=== PATIENT | female | born 1930 | race Caucasian/White ===

== ENCOUNTER 2018-03-18 09:58 | Emergency (ER) | payer MEDICARE, OTHER ==
[2018-03-18] MEDS ORDERED: LORAZEPAM 0.5 MG TABLET PO ONE (10:53)
[2018-03-18] MEDS ORDERED: IPRATROPIUM/ALBUTEROL (0.5MG/3MG) NEB INH ONE (10:53)
[2018-03-18 11:07] LABS: BASO % 0.3 % (0-6); EOS % 1.6 % (0-6); GRAN % 73.3 % (47-80); HEMATOCRIT 40.6 % (35.0-47.0); HEMOGLOBIN 12.9 gm/dl (11.6-16.0); LYMPH % 17.5 % (16-45); MEAN CELL VOLUME 97.8 fl (81-97); MEAN CORPUSCULAR HEMOGLOBIN 31.1 pg (27-33); MEAN CORPUSCULAR HGB CONC 31.8 g/dl (32-36); MEAN PLATELET VOLUME 9.9 fl (7.4-10.4); MONO % 7.3 % (0-9); PLATELET COUNT 364 K/uL (130-400); RED BLOOD COUNT 4.15 M/uL (3.80-5.40); RED CELL DISTRIBUTION WIDTH 14.1 % (11.5-14.5)
[2018-03-18 11:29] LABS: BLOOD UREA NITROGEN 44 mg/dL (8-23); CREATININE 1.8 mg/dL (0.5-0.9); EST GLOMERULAR FILTRATION RATE 28 mL/min
[2018-03-18 11:30] LABS: TOTAL PROTEIN 7.8 g/dL (6.6-8.7)
[2018-03-18 11:32] LABS: GLUCOSE,RANDOM 197 mg/dL (74-109)
[2018-03-18 11:34] LABS: ALT/SGPT 24 U/L (<33)
[2018-03-18 11:35] LABS: ALB/GLOB RATIO 1.1 (1.1-1.8); ALKALINE PHOSPHATASE 83 U/L (35-104); AST/SGOT 15 U/L (10.0-35.0)
[2018-03-18] MEDS ORDERED: 0.9% SODIUM CHLORIDE 250ML BAG IV ONE (11:47)
--- NOTE | 2018-03-18 12:46 | Emergency Department Record ---
Anxiety - General Chief Complaint: Anxiety Stated Complaint: ANXIETY, CAN'T SLEEP Time Seen by Provider: 03/18/18 10:36 Source: Patient Mode of Arrival: Ambulatory Limitations: No limitations - History of Present Illness Initial Comments: pt c/o insomnia and anxiety. she states it has gone on for years. she is very weary and frustrated. Complaint: Other -: Unknown Place: Home Previous History of Same: Yes Severity: Mild Quality: Intermittant Associated symptoms: Shortness of breath - Related Data Home Medications: Home Medications Medication Instructions Recorded Confirmed Last Taken Aspirin [Aspir-Low] 81 mg PO DAILY 03/18/18 03/18/18 03/17/18 Atorvastatin Calcium [Lipitor] 10 mg PO QHS 03/18/18 03/18/18 03/17/18 Bumetanide 1 mg PO BID 03/18/18 03/18/18 03/17/18 Cholecalciferol (Vitamin D3) 1,000 unit PO DAILY 03/18/18 03/18/18 03/17/18 [Vitamin D3] Docusate Sodium [Stool Softener] 100 mg PO DAILY 03/18/18 03/18/18 03/17/18 Estrogens, Conjugated [Premarin] 42.5 gm VG ASDIR 03/18/18 03/18/18 03/17/18 Gabapentin [Neurontin] 100 mg PO QHS 03/18/18 03/18/18 03/17/18 Gabapentin [Neurontin] 300 mg PO QHS 03/18/18 03/18/18 Unknown Glipizide [Glucotrol Xl] 5 mg PO DAILY 03/18/18 03/18/18 03/17/18 Hydrocodone/APAP 5/325Mg [[facility] 1 each PO Q8H PRN 03/18/18 03/18/18 Unknown 5Mg/325Mg] Insulin Glargine,Hum.rec.anlog 32 unit SQ DAILY 03/18/18 03/18/18 03/18/18 [Lantus Solostar] Insulin Lispro [Humalog Kwikpen] 5 unit SQ TIDAC 03/18/18 03/18/18 03/18/18 Metoprolol Succinate [Toprol Xl] 50 mg PO DAILY 03/18/18 03/18/18 03/17/18 Multivitamin [Multi-Vitamin Daily] 1 each PO DAILY 03/18/18 03/18/18 03/17/18 Ropinirole HCl [Requip] 2 mg PO QHS 03/18/18 03/18/18 03/17/18 Previous Rx's Medication Instructions Recorded Lorazepam [Ativan] 0.5 mg PO QHS #10 tablet 03/18/18 Allergies/Adverse Reactions: Allergies Allergy/AdvReac Type Severity Reaction Status Date / Time levofloxacin [From Levaquin] Allergy RASH Verified 03/18/18 10:12 Travel Screening - Travel/Exposure Within Last 30 Days Have you traveled within the last 30 days?: No - Travel/Exposure Within Last Year Have you traveled outside the [place] in the last year?: No - Additonal Travel Details Have you been exposed to anyone with a communicable illness?: No - Travel Symptoms Symptom Screening: None Review of Systems Reviewed: No additional complaints except as noted below Constitutional: Reports: As per HPI. Denies: Chills, Fever, Malaise, Night sweats, Weakness, Weight change Eyes: Reports: As per HPI. Denies: Eye discharge, Eye pain, Photophobia, Vision change ENT: Reports: As per HPI. Denies: Congestion, Dental pain, Ear pain, Epistaxis , Hearing loss, Throat pain Respiratory: Reports: As per HPI, Dyspnea. Denies: Cough, Hemoptysis, Stridor, Wheezes Cardiovascular: Reports: As per HPI. Denies: Arrhythmia, Chest pain, Dyspnea on exertion, Edema, Murmurs, Orthopnea, Palpitations, Paroxysmal nocturnal dyspnea, Rheumatic Fever, Syncope Endocrine: Reports: As per HPI. Denies: Fatigue, Heat or cold intolerance, Polydipsia, Polyuria Gastrointestinal: Reports: As per HPI. Denies: Abdominal pain, Constipation, Diarrhea, Hematemesis, Hematochezia, Melena, Nausea, Vomiting Genitourinary: Reports: As per HPI. Denies: Abnormal menses, Discharge, Dyspareunia, Dysuria, Frequency, Hematuria, Incontinence, Retention, Urgency Musculoskeletal: Reports: As per HPI. Denies: Arthralgia, Back pain, Gout, Joint swelling, Myalgia, Neck pain Skin: Reports: As per HPI. Denies: Bruising, Change in color, Change in hair/ nails, Lesions, Pruritus, Rash Neurological: Reports: As per HPI. Denies: Abnormal gait, Confusion, Headache, Numbness, Paresthesias, Seizure, Tingling, Tremors, Vertigo, Weakness Psychiatric: Reports: As per HPI. Denies: Anxiety, Auditory hallucinations, Depression, Homicidal thoughts, Suicidal thoughts, Visual hallucinations Hematological/Lymphatic: Reports: As per HPI. Denies: Anemia, Blood Clots, Easy bleeding, Easy bruising, Swollen glands Past Medical History - SOCIAL HISTORY Smoking Status: Never smoker Alcohol Use: None Drug Use: None - RESPIRATORY Hx Respiratory Disorders: Yes Comment:: pulmonary htn - CARDIOVASCULAR Hx Cardio Disorders: Yes Hx CHF: Yes Hx Heart Attack: Yes (x 2) Hx Hypertension: Yes - NEURO Hx Neuro Disorders: Yes Hx CVA: Yes (thinks so) Hx Neuropathy: Yes Comment:: trigeminal neuralgia - GI Hx GI Disorders: No - Hx Genitourinary Disorders: Yes Hx Renal Disease: Yes Hx UTI: Yes - ENDOCRINE Hx Endocrine Disorders: Yes Hx Diabetes: Yes (type 2) Hx Thyroid Disease: No - MUSCULOSKELETAL Hx Musculoskeletal Disorders: Yes Hx Arthritis: Yes - PSYCH Hx Psych Problems: Yes Hx Anxiety: Yes - HEMATOLOGY/ONCOLOGY Hx Hematology/Oncology Disorders: No Family Medical History Any Significant Family History?: No Physical Exam - General General Appearance: Alert, Oriented x3, Cooperative, Mild distress - Head Head exam: Normal inspection - Eye Eye exam: Normal appearance, PERRL Pupils: Normal accommodation - ENT ENT exam: Normal exam, Mucous membranes moist, Normal external ear exam, Normal orophraynx Ear exam: Normal external inspection. negative: External canal tenderness Nasal Exam: Normal inspection. negative: Discharge, Sinus tenderness Mouth exam: Normal external inspection, Tongue normal Teeth exam: Normal inspection. negative: Dental caries Throat exam: Normal inspection. negative: Tonsillar erythema, Tonsillar exudate - Neck Neck exam: Normal inspection, Full ROM. negative: Tenderness - Respiratory Respiratory exam: Normal lung sounds bilaterally. negative: Respiratory distress - Cardiovascular Cardiovascular Exam: Regular rate, Normal rhythm, Normal heart sounds - GI/Abdominal GI/Abdominal exam: Soft, Normal bowel sounds. negative: Tenderness - Rectal Rectal exam: Deferred - exam: Deferred - Extremities Extremities exam: Normal inspection, Full ROM, Normal capillary refill. negative: Tenderness - Back Back exam: Reports: Normal inspection, Full ROM. Denies: Muscle spasm, Rash noted, Tenderness - Neurological Neurological exam: Alert, Normal gait, Oriented X3, Reflexes normal - Psychiatric Psychiatric exam: Anxious - Skin Skin exam: Dry, Intact, Normal color, Warm Course Vital Signs 03/18/18 03/18/18 03/18/18 09:59 11:13 11:20 Temperature 97.8 F Pulse Rate 94 H 86 Pulse Rate [ 81 Pulse Ox Probe] Respiratory 24 18 18 Rate Blood Pressure 185/86 Blood Pressure 155/74 [Right Arm] Pulse Ox 97 98 97 03/18/18 03/18/18 12:03 12:12 Temperature Pulse Rate Pulse Rate [ 76 80 Pulse Ox Probe] Respiratory 23 18 Rate Blood Pressure Blood Pressure 155/68 154/67 [Right Arm] Pulse Ox 94 L 3 L Medical Decision Making - Lab Data Result diagrams: 03/18/18 11:00 03/18/18 11:00 Lab Results 03/18/18 03/18/18 03/18/18 Range/Units 11:00 11:00 11:00 WBC 11.0 (4.2-12.2) K/uL RBC 4.15 (3.80-5.40) M/uL Hgb 12.9 (11.6-16.0) gm/dl Hct 40.6 (35.0-47.0) % MCV 97.8 H (81-97) fl MCH 31.1 (27-33) pg MCHC 31.8 L (32-36) g/dl RDW 14.1 (11.5-14.5) % Plt Count 364 (130-400) K/uL MPV 9.9 (7.4-10.4) fl Gran % 73.3 (47-80) % Lymphocytes % 17.5 (16-45) % Monocytes % 7.3 (0-9) % Eosinophils % 1.6 (0-6) % Basophils % 0.3 (0-6) % Sodium 141 (136-145) mmol/L Potassium 5.1 H (3.4-4.5) mmol/L Chloride 99 (98-107) mmol/L Carbon Dioxide 26.0 (22-29) mmol/L Anion Gap 16.0 (7-16) BUN 44 H (8-23) mg/dL Creatinine 1.8 H (0.5-0.9) mg/dL Estimated GFR 28 mL/min Random Glucose 197 H (74-109) mg/dL Calcium 9.3 (8.8-10.2) mg/dL Total Bilirubin 0.40 (0.2-1.0) mg/dL AST 15 (10.0-35.0) U/L ALT 24 (<33) U/L Alkaline Phosphatase 83 (35-104) U/L Troponin T < 0.010 (0-0.010) ng/mL NT-Pro-B Natriuret Pep 4521.00 H (<450) pg/mL Total Protein 7.8 (6.6-8.7) g/dL Albumin 4.0 (4.0-5.0) g/dL Globulin 3.8 (1.4-4.8) gm/dL Albumin/Globulin Ratio 1.1 (1.1-1.8) TSH 2.60 (0.270-4.20) uIU/mL Disposition Disposition: Discharge Clinical Impression: Renal insufficiency, Hyperkalemia Insomnia Qualifiers: Insomnia type: unspecified Qualified Code(s): G47.00 - Insomnia, unspecified Disposition: Home, Self-Care Condition: (1) Good Instructions: Insomnia (ED), Chronic Kidney Disease (ED), Hyperkalemia (ED) Additional Instructions: follow up with family doctor. return sooner if worse. Prescriptions: Lorazepam [Ativan] 0.5 mg PO QHS #10 tablet Forms: Patient Portal Access Quality - Quality Measures Quality Measures: N/A - Blood Pressure Screening Does Patient Have Any of the Following: No Blood Pressure Classification: Pre-Hypertensive BP Reading Systolic Measurement: 185 Diastolic Measurement: 86 Screening for High Blood Pressure: < Pre-Hypertensive BP, F/U Documented > [ [id number]] Pre-Hypertensive Follow-up Interventions: Follow-up with rescreen every year.
[2018-03-18 13:07] LABS: URINE APPEARANCE CLEAR; URINE BILIRUBIN NEGATIVE (NEGATIVE); URINE BLOOD NEGATIVE (NEGATIVE); URINE COLOR YELLOW; URINE KETONE NEGATIVE (NEGATIVE); URINE LEUKOCYTE ESTERASE TRACE (NEGATIVE); URINE NITRITE NEGATIVE (NEGATIVE); URINE PROTEIN TRACE (NEGATIVE); URINE UROBILINOGEN 0.2 E.U./dL (0.20 - 1.00)
[2018-03-18 13:19] LABS: URINE BACTERIA NONE SEEN; URINE RBC 0 - 2 (NONE SEEN); URINE SQUAMOUS EPITHELIAL CELL 0 - 2 /hpf; URINE WBC 0 - 2 (0-2/hpf)
[2018-03-18] MEDS ORDERED: SPS 15 GM/60 ML PO ONE (13:22)
--- NOTE | 2018-03-19 14:06 | CT SCAN REPORT ---
EXAM: EMERGENCY HEAD CT HISTORY: INSOMNIA WITH SLIGHT CONFUSION, FELL A WEEK AGO. TECHNIQUE: Axial CT scan of the head was performed without IV contrast. Comparison: None. FINDINGS: No definite acute intracranial hemorrhage identified. No focal mass effect or midline shift apparent. Moderate generalized atrophy with chronic appearing deep white matter changes, nonspecific, but likely representing some chronic small vessel deep white matter ischemic disease. No depressed calvarial fracture is evident. IMPRESSION: 1. GENERALIZED ATROPHY WITH CHRONIC APPEARING DEEP WHITE MATTER CHANGES. 2. NO DEFINITE ACUTE INTRACRANIAL HEMORRHAGE OR FOCAL MASS EFFECT EVIDENT. JOB NUMBER: [id number] [facility]
== END 2018-03-18 13:50 | disposition home or self-care (01) ==
LOC: ER 09:58
DX: E11.22 Type 2 diabetes mellitus with diabetic chronic kidney disease (principal); I13.0 Hypertensive heart and chronic kidney disease with heart failure and stage 1 through stage 4 chronic kidney disease, or unspecified chronic kidney disease; N18.9 Chronic kidney disease, unspecified; E87.5 Hyperkalemia; I50.9 Heart failure, unspecified; G47.00 Insomnia, unspecified; R06.02 Shortness of breath; I10 Essential (primary) hypertension; Z79.4 Long term (current) use of insulin
CPT/HCPCS: 70450; 80053; 81001; 83880; 84443; 84484; 85025; 93005; 93010; 94640; 96361; 96374; 99284